=== PATIENT | female | born 1995 | race Caucasian/White ===

== ENCOUNTER 2018-12-11 12:20 | Observation (INO) | payer OTHER ==
[~2018-12-11] VITALS: Ht 165.1 cm; Wt 101.1 kg
[2018-12-11] VITALS (9 sets, daily range): BP systolic 114–153; BP diastolic 65–84; PULSE 76–106; TEMP 97.6–98.1
--- NOTE | 2018-12-11 15:30 | NUR ---
Patient returns from cysto drowsy but arouses easily. VSS. No c/o pain or discomfort.
--- NOTE | 2018-12-11 19:05 | NUR ---
Pt resting in bed. No distress noted. Pt denies pain. VSS. Discharge instructions reviewed with patient. Pt verbalizes understanding and voices no questions or concerns. IV discontinued. Scripts and belongings given to patient.
--- NOTE | 2018-12-11 19:20 | NUR ---
Pt escorted out via wheelchair. Pt home with in private vehicle. Criteria met.
== END 2018-12-11 19:20 | disposition home or self-care (01) ==
LOC: SURG 12:20
PROVIDERS: ADMIT Urology
DX: N20.2 Calculus of kidney with calculus of ureter (principal)
CPT/HCPCS: C1769; C2617; G0378; J0690; J1100; J1885; J2270; J2405; J2550; J2704; J3010; J7030